=== PATIENT | male | born 1985 | race Caucasian/White ===

== ENCOUNTER → 2018-11-05 | Outpatient (CLI) | payer SELFPAY ==
--- NOTE | 2018-11-05 16:12 | KCIC ---
Right lower extremity venous duplex study 11/05/2018 2:17 PM Clinical History: Right lower extremity pain and edema Technique: Using a combination of real time ultrasound imaging and color-flow and pulse Doppler imaging techniques, including spectral analysis, graded compression and augmentation, duplex evaluation of the deep venous system of the right lower extremity was performed. Multiple images were obtained. Findings: There is no sonographic evidence of deep venous thrombosis involving the visualized deep venous structures of the right lower extremity Impression: No evidence of deep venous thrombosis involving the right lower extremity Electronically signed by: Stefan Gross MD (11/05/2018 2:17 PM) [id number]
== END | disposition home or self-care (01) ==
LOC: KCIC US 12:53
PROVIDERS: ATTEND Family Medicine
DX: R22.41 Localized swelling, mass and lump, right lower limb (principal); M79.604 Pain in right leg
CPT/HCPCS: 93971